=== PATIENT | male | born 1965 | race Caucasian/White ===

== ENCOUNTER 2017-02-08 18:04 | Emergency (ER) | payer MEDICARE ==
[~2017-02-08] VITALS: Ht 165.1 cm; Wt 87.0 kg
[2017-02-08 18:06] VITALS: BP 139/87; PULSE 109; RESP 17; TEMP 98.4; O2SAT 99
--- NOTE | 2017-02-08 18:10 | PD ---
Physical Exam Time Seen by Provider: 18:09 Narrative 52 y/o male presents for evaluation of sunburn/edema to lower extremities after sitting in the sun for several hours 6 days ago. Vital signs reviewed Seen at triage desk. awaiting bed placement. Data Data Last Documented VS Vital Signs Date Time Temp Pulse Resp B/P Pulse Ox O2 Delivery O2 Flow Rate FiO2 02/08/17 18:06 98.4 109 17 139/87 99 MDM Medical Record Reviewed: Yes Supervised Visit with RADHA: Holden Hardin February 08, 2017 18:10
[2017-02-08] MEDS ORDERED: SERT-132 PO (18:33)
[2017-02-08] MEDS ORDERED: LITH300C2 PO (18:33)
--- NOTE | 2017-02-08 18:54 | PD ---
HPI Chief Complaint: Edema Time Seen by Provider: 18:51 Travel History International Travel<30 days: No Contact w/Intl Traveler<30days: No Traveled to known affect area: No History of Present Illness HPI 52-year-old male presents to emergency Department with complaint of a center to bilateral lower extremities since Tuesday morning after sitting in the sun for about 2 hours. Swelling started to bilateral lower extremities on Tuesday. He reports multiple blisters to the bottom of his feet secondary to having to take insoles out of his shoes because of the swelling in his feet. He has tried Eucerin cream to the sunburn with no relief. He denies fever or vomiting. Reports numbness and tingling to his feet; denies loss of sensation. Reports pain is worse in the ankles when he walks. He says it feels like his ankles are going to explode from all the swelling. No known allergies. Has no other medical complaints. Denies significant past medical history. No other modifying factors or associated signs and symptoms. PFSH Past Medical History Depression: Yes Immunizations Current: Yes Tetanus Vaccination: < 5 Years Influenza Vaccination: Yes Past Surgical History Tonsillectomy: Yes Social History Alcohol Use: No Tobacco Use: No Substance Use: No Allergies-Medications (Allergen,Severity, Reaction): Coded Allergies: No Known Allergies (Unverified , 02/08/17) Reported Meds & Prescriptions Reported Meds & Active Scripts Active Ibuprofen 800 Mg Tab 800 Mg PO Q6HR PRN Bactrim DS (Sulfamethoxazole-Trimethoprim) 800-160 Mg Tab 1 Tab PO BID 10 Days Keflex (Cephalexin) 500 Mg Cap 500 Mg PO Q6H 10 Days Reported Sertraline (Sertraline HCl) 50 Mg Tab 50 Mg PO DAILY [place] Carbonate 300 Mg Cap 300 Mg PO TID Review of Systems Except as stated in HPI: all other systems reviewed are Neg Physical Exam Narrative GENERAL: Well-nourished, well-developed male patient, in no acute distress; afebrile, nontoxic-appearing SKIN: Warm and dry. Bilateral lower extremities are erythemic and with warmth to touch. Bilateral lower extremities are supple and non-tense with 2+ pedal pulses and sensory intact and with edema. One open blister noted to the left lower leg. Multiple blisters noted to the bottom of bilateral feet. HEAD: Atraumatic. Normocephalic. EYES: Pupils equal and round. No scleral icterus. No injection or drainage. ENT: Mucosa pink and moist. Airway patent. NECK: Trachea midline. CARDIOVASCULAR: Regular rate. RESPIRATORY: No accessory muscle use. GASTROINTESTINAL: Rounded. MUSCULOSKELETAL: No obvious deformities. No clubbing. No cyanosis. No edema. NEUROLOGICAL: Awake and alert. Oriented 3. No obvious cranial nerve deficits. Motor grossly within normal limits. Normal speech. PSYCHIATRIC: Appropriate mood and affect; insight and judgment normal. Data Data Last Documented VS Vital Signs Date Time Temp Pulse Resp B/P Pulse Ox O2 Delivery O2 Flow Rate FiO2 02/08/17 18:06 98.4 109 17 139/87 99 MDM Medical Decision Making Medical Screen Exam Complete: Yes Emergency Medical Condition: Yes Medical Record Reviewed: Yes Differential Diagnosis Sunburn, edema, blistering, cellulitis Narrative Course 52-year-old male with bilateral lower extremity sunburn to the anterior aspect with one blister noted to the left lower leg and multiple blisters noted to the bottom of his feet in multiple areas. Patient was sunburned 6 days ago and swelling in his legs started on Tuesday. Patient is afebrile and nontoxic- appearing. He denies fever, vomiting. Bilateral lower Ixodes are supple and non-tense with 2+ pedal pulses and sensory intact. I will prescribe antibiotics for possible infection. Ibuprofen prescribed for home. Inserted patient to use topical quibbling agent such as no eczema and aloe. Instructed patient to keep legs elevated for the next few days and to do cool compresses. Heart rate recheck appox 80-90bpm. Keflex, Bactrim, ibuprofen prescribed for home. Patient verbalizes understanding and agreement with treatment plan. Patient is medically cleared and stable for discharge. Discussed reasons to return to the emergency department. Instructed patient to follow up with primary care provider. Patient agrees with treatment plan. The patients vital signs are stable and the patient is stable for outpatient follow-up and treatment. Patient discharged home, stable and in no acute distress. Diagnosis Primary Impression: Sunburn of first degree Additional Impressions: Blisters of multiple sites Lower leg edema Referrals: Primary Care Physician Patient Instructions: Blister (ED), General Instructions, Leg Edema (ED), Sunburn (ED) Additional Instructions: Cool compresses, cool cream (such as noxema) and/or cool soaks to bilateral lower extremities Elevate extremities Ibuprofen or Tylenol instructed nothing for pain and inflammation Aloe vera to sunburn as directed and as needed Follow-up with primary care provider Return to the emergency department immediately with worsening of symptoms Med/Other Pt SpecificInfo: Prescription(s) given Scripts Ibuprofen 800 Mg [id number] Mg PO Q6HR PRN (PAIN) #30 TAB Ref 0 Prov:Marly Kohler 02/08/17 Sulfamethoxazole-Trimethoprim (Bactrim DS)800-160 Mg Tab1 Tab PO BID 10 Days Ref 0 Prov:Marly Kohler 02/08/17 Cephalexin (Keflex)500 Mg [id number] Mg PO Q6H 10 Days Ref 0 Prov:Marly Kohler 02/08/17 Disposition: 01 DISCHARGE HOME Condition: Stable Marly Kohler February 08, 2017 18:54
[2017-02-08] MEDS ORDERED: IBUP800T23 PO (18:59)
[2017-02-08] MEDS ORDERED: CEPH-460 PO (18:59)
[2017-02-08] MEDS ORDERED: BACT800T5 PO (18:59)
== END 2017-02-08 19:22 | disposition home or self-care (01) ==
LOC: NEPK 18:04
DX: L55.0 Sunburn of first degree (principal); S90.822A Blister (nonthermal), left foot, initial encounter; S90.821A Blister (nonthermal), right foot, initial encounter; S80.822A Blister (nonthermal), left lower leg, initial encounter; R60.0 Localized edema
CPT/HCPCS: 99282